=== PATIENT | male | born 1970 | race Caucasian/White ===

== ENCOUNTER 2021-07-04 15:55 | Observation (INO) | payer OTHER, MEDICARE ==
[2021-07-04 19:03] LABS: Basophils % (A) 1 %; Eosinophils # (A) 0.3 k/uL (0-0.7); Eosinophils % (A) 4 %; HCT 46.4 % (39.0-53.0); HGB 15.3 gm/dL (13.0-17.5); Lymphocytes # (A) 2.9 k/uL (1.0-4.8); Lymphocytes % (A) 37 %; MCHC 32.9 g/dL (31.0-37.0); MCV 91.4 fL (80.0-100.0); Mean Platelet Volume 7.7; Monocytes # (A) 0.4 k/uL (0-1.0); Monocytes % (A) 5 %; Neutrophils # (A) 4.1 k/uL (1.3-7.7); Neutrophils % (A) 51 %; Platelet Count 253 k/uL (150-450); RBC 5.08 m/uL (4.30-5.90); WBC 7.9 k/uL (3.8-10.6)
[2021-07-04 19:17] LABS: INR 0.9 (<1.2); Partial Thromboplastin Time 23.4 sec (22.0-30.0)
[2021-07-04 19:34] LABS: ALT 28 U/L (4-49); AST 34 U/L (17-59); African American GFR (CKD) >90 (>60 ml/min/1.73 sqM); Albumin 4.4 g/dL (3.5-5.0); Alkaline Phosphatase 65 U/L (38-126); Anion Gap 8 mmol/L; Blood Urea Nitrogen 16 mg/dL (9-20); Calcium 9.1 mg/dL (8.4-10.2); Carbon Dioxide 25 mmol/L (22-30); Chloride 105 mmol/L (98-107); Glucose 94 mg/dL (74-99); Lipase 114 U/L (23-300); Non-African American GFR(CKD) 84 (>60 ml/min/1.73 sqM); Potassium 4.6 mmol/L (3.5-5.1); Sodium 138 mmol/L (137-145); Total Bilirubin 0.3 mg/dL (0.2-1.3); Total Protein 7.4 g/dL (6.3-8.2)
--- NOTE | 2021-07-04 19:38 | ED ---
General Adult HPI - General Chief complaint: Chest Pain Stated complaint: Chest pain Time Seen by Provider: 07/04/21 18:33 Source: patient, RN notes reviewed, old records reviewed Mode of arrival: wheelchair Limitations: no limitations - History of Present Illness Initial comments: 51-year-old male history of hypertension and hyperlipidemia presents for evaluation of chest pain which began prior to arrival. This was associated with left arm pain and diaphoresis. No vomiting. No previous history of CAD. He states the pain is better but he has some very mild residual chest tightness currently. He was a former smoker. - Related Data Home Medications Medication Instructions Recorded Confirmed Simvastatin [Zocor] 20 mg PO HS 07/04/21 07/04/21 Allergies Allergy/AdvReac Type Severity Reaction Status Date / Time ampicillin Allergy Rash/Hives Verified 07/04/21 19:47 Penicillins Allergy Rash/Hives Verified 07/04/21 19:47 Review of Systems ROS Statement: Those systems with pertinent positive or pertinent negative responses have been documented in the HPI. ROS Other: All systems not noted in ROS Statement are negative. Past Medical History Past Medical History: Hyperlipidemia, Hypertension History of Any Multi-Drug Resistant Organisms: None Reported Past Surgical History: Hernia Repair, Orthopedic Surgery Additional Past Surgical History / Comment(s): LEFT HIP SURGERY; LEFT HAND SURG Past Psychological History: No Psychological Hx Reported Smoking Status: Never smoker Past Alcohol Use History: None Reported Past Drug Use History: None Reported General Exam Limitations: no limitations General appearance: alert, in no apparent distress Head exam: Present: atraumatic, normocephalic Eye exam: Present: normal appearance, PERRL ENT exam: Present: normal exam Neck exam: Present: normal inspection. Absent: tenderness, meningismus Respiratory exam: Present: normal lung sounds bilaterally. Absent: respiratory distress, wheezes Cardiovascular Exam: Present: regular rate, normal rhythm GI/Abdominal exam: Present: soft. Absent: distended, tenderness Extremities exam: Present: normal inspection, normal capillary refill Back exam: Present: normal inspection Neurological exam: Present: alert, oriented X3, CN II-XII intact. Absent: motor sensory deficit Psychiatric exam: Present: normal affect, normal mood Skin exam: Present: warm, dry, intact. Absent: cyanosis, diaphoretic Course Vital Signs 07/04/21 07/04/21 16:15 18:48 Temperature 98.3 F Pulse Rate 62 77 Respiratory 18 18 Rate Blood Pressure 135/87 143/107 O2 Sat by Pulse 99 Oximetry EKG Findings - EKG Comments: EKG Findings:: EKG: Normal sinus rhythm, 69 ventricular rate, TN interval 152, QRS duration 102, QTC [address] segment elevation Medical Decision Making - Medical Decision Making 51-year-old male presenting with chest pain. Patient had typical features. Initial EKG is sinus rhythm without ST segment elevation. His pain is nearly completely resolved with time my initial evaluation. He does have risk factors including hypertension and hyperlipidemia. His chest x-ray is clear. His CBC, CMP are unremarkable. The patient has negative initial troponin. Given his risk factors he will be kept in observation for serial cardiac enzymes, telem etry, cardiology consultation. - Lab Data Result diagrams: 07/04/21 18:50 07/04/21 18:50 Lab Results 07/04/21 07/04/21 07/04/21 Range/Units 18:50 18:50 18:50 WBC 7.9 (3.8-10.6) k/uL RBC 5.08 (4.30-5.90) m/uL Hgb 15.3 (13.0-17.5) gm/dL Hct 46.4 (39.0-53.0) % MCV 91.4 (80.0-100.0) fL MCH 30.0 (25.0-35.0) pg MCHC 32.9 (31.0-37.0) g/dL RDW 13.0 (11.5-15.5) % Plt Count 253 (150-450) k/uL MPV 7.7 Neutrophils % 51 % Lymphocytes % 37 % Monocytes % 5 % Eosinophils % 4 % Basophils % 1 % Neutrophils # 4.1 (1.3-7.7) k/uL Lymphocytes # 2.9 (1.0-4.8) k/uL Monocytes # 0.4 (0-1.0) k/uL Eosinophils # 0.3 (0-0.7) k/uL Basophils # 0.0 (0-0.2) k/uL PT 10.0 (9.0-12.0) sec INR 0.9 (<1.2) APTT 23.4 (22.0-30.0) sec Sodium 138 (137-145) mmol/L Potassium 4.6 (3.5-5.1) mmol/L Chloride 105 (98-107) mmol/L Carbon Dioxide 25 (22-30) mmol/L Anion Gap 8 mmol/L BUN 16 (9-20) mg/dL Creatinine 1.04 (0.66-1.25) mg/dL Est GFR (CKD-EPI)AfAm >90 (>60 ml/min/1.73 sqM) Est GFR (CKD-EPI)NonAf 84 (>60 ml/min/1.73 sqM) Glucose 94 (74-99) mg/dL Calcium 9.1 (8.4-10.2) mg/dL Magnesium 2.0 (1.6-2.3) mg/dL Total Bilirubin 0.3 (0.2-1.3) mg/dL AST 34 (17-59) U/L ALT 28 (4-49) U/L Alkaline Phosphatase 65 (38-126) U/L Troponin I (0.000-0.034) ng/mL Total Protein 7.4 (6.3-8.2) g/dL Albumin 4.4 (3.5-5.0) g/dL Lipase 114 (23-300) U/L 07/04/21 Range/Units 18:50 WBC (3.8-10.6) k/uL RBC (4.30-5.90) m/uL Hgb (13.0-17.5) gm/dL Hct (39.0-53.0) % MCV (80.0-100.0) fL MCH (25.0-35.0) pg MCHC (31.0-37.0) g/dL RDW (11.5-15.5) % Plt Count (150-450) k/uL MPV Neutrophils % % Lymphocytes % % Monocytes % % Eosinophils % % Basophils % % Neutrophils # (1.3-7.7) k/uL Lymphocytes # (1.0-4.8) k/uL Monocytes # (0-1.0) k/uL Eosinophils # (0-0.7) k/uL Basophils # (0-0.2) k/uL PT (9.0-12.0) sec INR (<1.2) APTT (22.0-30.0) sec Sodium (137-145) mmol/L Potassium (3.5-5.1) mmol/L Chloride (98-107) mmol/L Carbon Dioxide (22-30) mmol/L Anion Gap mmol/L BUN (9-20) mg/dL Creatinine (0.66-1.25) mg/dL Est GFR (CKD-EPI)AfAm (>60 ml/min/1.73 sqM) Est GFR (CKD-EPI)NonAf (>60 ml/min/1.73 sqM) Glucose (74-99) mg/dL Calcium (8.4-10.2) mg/dL Magnesium (1.6-2.3) mg/dL Total Bilirubin (0.2-1.3) mg/dL AST (17-59) U/L ALT (4-49) U/L Alkaline Phosphatase (38-126) U/L Troponin I <0.012 (0.000-0.034) ng/mL Total Protein (6.3-8.2) g/dL Albumin (3.5-5.0) g/dL Lipase (23-300) U/L Disposition Clinical Impression: Chest pain Disposition: ADMITTED IP TO THIS [facility] Condition: Stable Is patient prescribed a controlled substance at d/c from ED?: No Referrals: Nonstaff,Physician [Primary Care Provider] - 1-2 days Decision to Admit Reason: Admit from EC Decision Date: 07/04/21 Decision Time: 20:33
--- NOTE | 2021-07-04 19:44 | XR ---
EXAMINATION TYPE: XR chest 2V DATE OF EXAM: 07/04/2021 CLINICAL HISTORY: Chest Pain. TECHNIQUE: Frontal and lateral view of the chest. COMPARISON: 07/20/2014 FINDINGS: The cardiomediastinal silhouette is within normal limits for size. Pulmonary vasculature i s normal. There is no focal air space opacity. No pleural effusion. No pneumothorax seen. No acute d isplaced osseous fracture. IMPRESSION: No acute cardiopulmonary process.
[2021-07-04] MEDS ORDERED: ASPIRIN 325 MG TAB PO STA (20:02)
[2021-07-04] MEDS ORDERED: MORPHINE SULFATE 4 MG/ML SYRINGE IV PRN (20:31)
[2021-07-04] MEDS ORDERED: ACETAMINOPHEN TAB 325 MG TAB PO PRN (20:31)
[2021-07-04] MEDS ORDERED: NALOXONE 0.4 MG/ML 1 ML VIAL IV PRN (20:31)
[2021-07-04] MEDS ORDERED: NITROGLYCERIN SL TABS 0.4 MG TAB SUBLINGUAL PRN (20:32)
--- NOTE | 2021-07-05 09:09 | P.HPIM ---
History of Present Illness This is a pleasant 51 years old male with past medical history of hyperlipidemia presents with episodes of chest pain and dyspnea that lasted for about an hour associated with left-sided jaw/neck pain Patient states that he has chest pain on and off for several months, to [place] [facility] last January and told him to watch it. Yesterday he had similar pressure- like chest pain on the left side of the chest, nonradiating while he was sitting in his incliner , and when he start walking to do simple physical activity he got sweating so he decided to come to emergency room. Chest pain as 6-7/10 and currently improvement down to 1-2/10 in severity yet felt like sharp with some dyspnea but no coughing. No hemoptysis. No weakness or dizziness or palpitation. In urine or bowel habits. No fever He denies smoking, alcohol or illicit drugs Vital signs are stable Labs reviewed and they're unremarkable including CBC, BMP and liver enzymes. Troponin is negative less than 0.012. EKG showed normal sinus rhythm at 69 with QTC of 4 to to have no significant ST- T changes Chest x-ray: No acute cardiopulmonary process Patient received aspirin in the emergency room and cardiology team are consulted Review of Systems CONSTITUTIONAL: No fever, no malaise, no fatigue. HEENT: No recent visual problems or hearing problems. Denied any sore throat. CARDIOVASCULAR: No orthopnea, PND, no palpitations, no syncope. PULMONARY: No shortness of breath, no cough, no hemoptysis. GASTROINTESTINAL: No diarrhea, no nausea, no vomiting, no abdominal pain. Normoactive bowel sounds. NEUROLOGICAL: No headaches, no weakness, no numbness. HEMATOLOGICAL: Denies any bleeding or petechiae. GENITOURINARY: Denies any burning micturition, frequency, or urgency. MUSCULOSKELETAL/RHEUMATOLOGICAL: Denies any joint pain, swelling, or any muscle pain. ENDOCRINE: Denies any polyuria or polydipsia. Past Medical History Past Medical History: Hyperlipidemia, Hypertension History of Any Multi-Drug Resistant Organisms: None Reported Past Surgical History: Hernia Repair, Orthopedic Surgery Additional Past Surgical History / Comment(s): LEFT HIP SURGERY; LEFT HAND SURG Past Psychological History: No Psychological Hx Reported Smoking Status: Never smoker Past Alcohol Use History: None Reported Past Drug Use History: None Reported Medications and Allergies Home Medications Medication Instructions Recorded Confirmed Type Simvastatin [Zocor] 20 mg PO HS 07/04/21 07/04/21 History Allergies Allergy/AdvReac Type Severity Reaction Status Date / Time ampicillin Allergy Rash/Hives Verified 07/04/21 19:47 Penicillins Allergy Rash/Hives Verified 07/04/21 19:47 Physical Exam Vitals: Vital Signs Temp Pulse Resp BP Pulse Ox 07/05/21 06:00 54 L 18 127/83 97 07/05/21 00:00 68 18 102/61 97 07/04/21 21:00 68 18 128/81 98 07/04/21 18:48 77 18 143/107 07/04/21 16:15 98.3 F 62 18 135/87 99 Intake and Output 07/04/21 07/05/21 07/05/21 22:59 06:59 14:59 Other: Weight 102.965 kg GENERAL: The patient is alert and oriented x3, not in any acute distress. Well developed, well nourished. HEENT: Pupils are round and equally reacting to light. EOMI. No scleral icterus. No conjunctival pallor. Normocephalic, atraumatic. No pharyngeal erythema. No thyromegaly. -CARDIOVASCULAR: S1 and S2 present. No murmurs, rubs, or gallops. Mild left mid sternal level chest wall tenderness PULMONARY: Chest is clear to auscultation, no wheezing or crackles. ABDOMEN: Soft, nontender, nondistended, normoactive bowel sounds. No palpable organomegaly. MUSCULOSKELETAL: No joint swelling or deformity. EXTREMITIES: No cyanosis, clubbing, or pedal edema. NEUROLOGICAL: Gross neurological examination did not reveal any focal deficits. SKIN: No rashes. No petechiae Results CBC & Chem 7: 07/04/21 18:50 07/04/21 18:50 Assessment and Plan Assessment: Chest pain and dyspnea, rule out cardiac causes. The also musculoskeletal versus others history hyperlipidemia Plan: This is a pleasant 51 years old male who presents with chest pain Continue with aspirin Cardiology consult who could recommend stress test Labs and medication were reviewed.. Continue same treatment. Continue with symptomatic treatment. Resume home medication. Monitor lytes and vitals. DVT and GI prophylaxis. Further recommendations as per clinical course of the patient DVT prophylaxis: Subcutaneous heparin GI Prophylaxis: Pepcid Prognosis is guarded
[2021-07-05] MEDS ORDERED: FAMOTIDINE 20 MG/2 ML VIAL IV SCH (09:15)
--- NOTE | 2021-07-05 09:49 | P.CRDCN ---
History of Present Illness Consult date: 07/05/21 History of present illness: HISTORY OF PRESENT ILLNESS: This is a 51 year old male with a past medical history significant for hyperlipidemia, former nicotine dependence, and occasional alcohol use. 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 Patient does report he follows with a [place] physician in [place] and was last evaluated there in January. We have been asked to see the patient in consultation for pain. Patient examined at the bedside. Patient states yesterday he was sitting at home in his recliner when he began to have some chest discomfort. He reports it felt like some he was flicking his chest. He thought he needed some fresh air so he got up and went outside and did some minor yard work. He states the discomfort worsened at that time. He began to feel sweaty and lightheaded. He denied any nausea or vomiting. He states he became concerned at that time so he presented to the emergency room for further evaluation. He states that several episode lasted for approximately 4-5 hours. He does report receiving aspirin and states it relieved his pain. At the time of examination he denies having any pain or pressure. The patient does report having these episodes for the past 2-3 months. He reports that her random and do not always occur with exertion. The patient is a former smoker. He reports having 2-3 drinks a week. No drug or marijuana use. He does report a family history of coronary artery disease and states his dad from a heart attack at age of 61. EKG reveals sinus mechanism with T-wave inversions in lead III Chest xray negative for acute cardiopulmonary process Laboratory data: WBC 7.9. Hemoglobin 15.3. Platelet count 253. Sodium 138. Potassium 4.6. BUN 16. Creatinine 1.04. Magnesium 2.0. Troponin negative 3. Current home cardiac medications include simvastatin 20 mg REVIEW OF SYSTEMS: At the time of my exam: CONSTITUTIONAL: Denies fever or chills. HEENT: Denies blurred vision, vision changes, or eye pain. Denies hemoptysis CARDIOVASCULAR: Denies chest pain. Denies orthopnea. Denies PND. Denies palpitations RESPIRATORY: Denies shortness of breath. GASTROINTESTINAL: Denies abdominal pain. Denies nausea or vomiting. HEMATOLOGIC: Denies bleeding disorders. GENITOURINARY: Denies any blood in urine. SKIN: Denies pruitis. Denies rash. PHYSICAL EXAM: VITAL SIGNS: Reviewed. GENERAL: Well-developed in no acute distress. HEENT: Head is normocephalic. Pupils are equal, round. Sclerae anicteric. Mucous membranes of the mouth are moist. Neck supple. No JVD or thyromegaly LUNGS: Respirations even and unlabored. Lungs essentially clear to auscultation bilaterally. HEART: Regular rate and rhythm. S1 and S2 heard. ABDOMEN: Soft. Nondistended. Nontender. EXTREMITIES: Normal range of motion. No clubbing or cyanosis. Peripheral pulses intact. No lower extremity edema NEUROLOGIC: Awake and alert. Oriented x 3. ASSESSMENT: Chest pain, troponins negative 3 Hyperlipidemia Former nicotine dependence Occasional alcohol use PLAN: An acute coronary event has been ruled out Resume home cardiac medications Obtain 2D echo to assess cardiac structure and function Patient to undergo stress echocardiogram today to assess for reversible ischemia Further recommendations pending patient's course Nurse practitioner note has been reviewed by physician. Signing provider agrees with the documented findings, assessment, and plan of care. Past Medical History Past Medical History: Hyperlipidemia, Hypertension History of Any Multi-Drug Resistant Organisms: None Reported Past Surgical History: Hernia Repair, Orthopedic Surgery Additional Past Surgical History / Comment(s): LEFT HIP SURGERY; LEFT HAND SURG Past Psychological History: No Psychological Hx Reported Smoking Status: Never smoker Past Alcohol Use History: None Reported Past Drug Use History: None Reported Medications and Allergies Home Medications Medication Instructions Recorded Confirmed Type Simvastatin [Zocor] 20 mg PO HS 07/04/21 07/04/21 History Allergies Allergy/AdvReac Type Severity Reaction Status Date / Time ampicillin Allergy Rash/Hives Verified 07/04/21 19:47 Penicillins Allergy Rash/Hives Verified 07/04/21 19:47 Physical Exam Vitals: Vital Signs Temp Pulse Resp BP Pulse Ox 07/05/21 06:00 54 L 18 127/83 97 07/05/21 00:00 68 18 102/61 97 07/04/21 21:00 68 18 128/81 98 07/04/21 18:48 77 18 143/107 07/04/21 16:15 98.3 F 62 18 135/87 99 Intake and Output 07/04/21 07/05/21 07/05/21 22:59 06:59 14:59 Other: Weight 102.965 kg Results 07/04/21 18:50 07/04/21 18:50 Cardiac Enzymes 07/04/21 07/04/21 07/04/21 Range/Units 18:50 18:50 23:16 AST 34 (17-59) U/L Troponin I <0.012 <0.012 (0.000-0.034) ng/mL 07/05/21 Range/Units 01:11 AST (17-59) U/L Troponin I <0.012 (0.000-0.034) ng/mL Coagulation 07/04/21 Range/Units 18:50 PT 10.0 (9.0-12.0) sec APTT 23.4 (22.0-30.0) sec CBC 07/04/21 Range/Units 18:50 WBC 7.9 (3.8-10.6) k/uL RBC 5.08 (4.30-5.90) m/uL Hgb 15.3 (13.0-17.5) gm/dL Hct 46.4 (39.0-53.0) % Plt Count 253 (150-450) k/uL Comprehensive Metabolic Panel 07/04/21 Range/Units 18:50 Sodium 138 (137-145) mmol/L Potassium 4.6 (3.5-5.1) mmol/L Chloride 105 (98-107) mmol/L Carbon Dioxide 25 (22-30) mmol/L BUN 16 (9-20) mg/dL Creatinine 1.04 (0.66-1.25) mg/dL Glucose 94 (74-99) mg/dL Calcium 9.1 (8.4-10.2) mg/dL AST 34 (17-59) U/L ALT 28 (4-49) U/L Alkaline Phosphatase 65 (38-126) U/L Total Protein 7.4 (6.3-8.2) g/dL Albumin 4.4 (3.5-5.0) g/dL Current Medications Generic Name Dose Route Start Last Admin Trade Name Freq PRN Reason Stop Dose Admin Acetaminophen 650 mg 07/04/21 20:31 Acetaminophen Tab 325 Mg Tab PO Q6HR PRN Mild Pain or Fever > 100.5 Morphine Sulfate 4 mg 07/04/21 20:31 Morphine Sulfate 4 Mg/Ml Syringe IV Q4HR PRN Severe Pain Naloxone HCl 0.2 mg 07/04/21 20:31 Naloxone 0.4 Mg/Ml 1 Ml Vial IV Q2M PRN Opioid Reversal Nitroglycerin 0.4 mg 07/04/21 20:32 Nitroglycerin Sl Tabs 0.4 Mg Tab SUBLINGUAL Q5M PRN Chest Pain Intake and Output 07/04/21 07/05/21 07/05/21 22:59 06:59 14:59 Other: Weight 102.965 kg 07/04/21 18:50 07/04/21 18:50
[2021-07-05 09:59] VITALS: RESP 16
--- NOTE | 2021-07-05 10:59 | ECHOF ---
Referral Reason:Rule out heart disease MEASUREMENTS -------- HEIGHT: 157.5 cm WEIGHT: 103.0 kg BP: 127/83 RVIDd: 3.4 cm (< 3.3) IVSd: 1.2 cm (0.6 - 1.1) LVIDd: 5.1 cm (3.9 - 5.3) LVPWd: 1.4 cm (0.6 - 1.1) IVSs: 1.9 cm LVIDs: 3.2 cm LVPWs: 2.1 cm LAESV Index (A-L): 26.78 ml/m Ao Diam: 3.5 cm (2.0 - 3.7) AV Cusp: 2.5 cm (1.5 - 2.6) LA Diam: 4.5 cm (2.7 - 3.8) MV EXCURSION: 16.144 mm (> 18.000) MV EF SLOPE: 83 mm/s (70 - 150) EPSS: 1.9 cm MV E Andres: 0.61 m/s MV DecT: 245 ms MV A Andres: 0.81 m/s MV E/A Ratio: 0.75 RAP: 5.00 mmHg RVSP: 24.29 mmHg FINDINGS -------- Sinus rhythm. This was a technically difficult study with suboptimal apical views. The left ventricular size is normal. There is mild concentric left ventricular hypertrophy. Overa ll left ventricular systolic function is normal with, an EF between 55 - 60 %. The diastolic fillin g pattern is normal for the age of the patient 8.54. The right ventricle is mildly enlarged. Normal LA size by volume 22+/-6 ml/m2. The right atrium was not well visualized. 1.0mg of Lumason was utilized for enhancement of images Interatrial and interventricular septum intact. The aortic valve is trileaflet and appears structurally normal. There is no evidence of aortic regu rgitation. There is no evidence of aortic stenosis. There is trace to mild mitral regurgitation. Mild tricuspid regurgitation present. There is no evidence of pulmonary hypertension. The right v entricular systolic pressure, as measured by Doppler, is 24.29mmHg. There is no pulmonic regurgitation present. The aortic root size is normal. IVC Not well visulized. There is no pericardial effusion. CONCLUSIONS -------- 1. The left ventricular size is normal. 2. There is mild concentric left ventricular hypertrophy. 3. Overall left ventricular systolic function is normal with, an EF between 55 - 60 %. 4. The diastolic filling pattern is normal for the age of the patient 8.54 5. The right ventricle is mildly enlarged. 6. There is trace to mild mitral regurgitation. 7. Mild tricuspid regurgitation present. SENIOR CLIMATE ADVISOR: Kelsy Gutierrez RDCS
--- NOTE | 2021-07-05 11:37 | P.STRESS ---
- Stress Test Note Stress Test Results/Findings: Exam Performed: stress echo exercise Exam Date: 07/05/21 Reason for Exam: CP Height: 5 ft 11 in Weight: 102.97 kg Protocol: STRESS ECHO EXERCISE Stage: 3 Duration of Exercise: 9:00 Resting Heart Rate: 53 Resting Blood Pressure: 134/89 Maximum Achieved Heart Rate: 147 Maximum Achieved Blood Pressure: 168/110 85% PMHR: 145 100% PMHR: 170 METS: 10.7 Technologist Comment: Stress Test Results/Findings: Patient underwent exercise stress echo with a Zach protocol treadmill stress test. Patient exercised into Stage 3 for a total of 9 minutes and 12 seconds reaching a total of 10.7 METS. Patient's maximum heart rate was 147 which represented 86 % age-predicted maximum heart rate. Stress EKG portion: At baseline patient's EKG showed normal sinus rhythm, normal axis, no significant ST or T wave abnormalities. At peak exercise, EKG showed and no significant change from baseline. Stress echo portion: 2-D echocardiogram was performed in the parasternal long, personal short, apical 2 and apical four-chamber views at rest, peak exercise and in recovery. At baseline, echocardiogram showed left ventricular ejection fraction 55% without wall motion abnormalities. With peak exercise, echocardiogram shows improvement in left ventricular ejection fraction, increase contractility, decrease in left ventricular end systolic dimension without wall motion abnormalities consistent with a normal response to exercise. Conclusions: 1. Normal EKG and echo response to exercise without evidence of inducible ischemia. 2. Good exercise capacity. 3. Normal ejection fraction 55%
[2021-07-05 15:31] VITALS: BP 143/77; PULSE 70; TEMP 97.9
--- NOTE | 2021-07-05 15:44 | US ---
EXAMINATION TYPE: US venous doppler duplex LE LT DATE OF EXAM: 07/05/2021 3:11 PM COMPARISON: NONE CLINICAL HISTORY: pain. Left leg pain SIDE PERFORMED: Left TECHNIQUE: The lower extremity deep venous system is examined utilizing real time linear array sonog mel with graded compression, doppler sonography and color-flow sonography. VESSELS IMAGED: Common Femoral Vein Deep Femoral Vein Greater Saphenous Vein * Femoral Vein Popliteal Vein Small Saphenous Vein * Proximal Calf Veins (* superficial vessels) There is normal flow, compressibility, vascular waveforms. Left Leg: Negative for DVT IMPRESSION: No evident deep venous thrombosis within the left lower extremity from the level of the k nee centrally
[2021-07-05] MEDS ORDERED: HEPARIN SODIUM,PORCINE/PF 5,000 UNIT/0.5 ML SYRINGE SQ SCH (21:00)
[2021-07-05] MEDS ORDERED: ATORVASTATIN 10 MG TAB PO SCH (21:00)
== END 2021-07-05 17:35 | disposition home or self-care (01) ==
LOC: EC 15:55 → 1SOBS 20:31 → INTOOBSV 20:31 → 6NMEDSUR 21:45 → 1SOBS 07-05 08:45 → UNDODISIN 07-05 17:20
PROVIDERS: ADMIT Hospitalist; ATTEND Hospitalist
DX: R07.89 Other chest pain (principal); R06.00 Dyspnea, unspecified; E78.5 Hyperlipidemia, unspecified; I10 Essential (primary) hypertension; Z20.822 Contact with and (suspected) exposure to COVID-19; R42 Dizziness and giddiness; R61 Generalized hyperhidrosis; M54.2 Cervicalgia; M79.602 Pain in left arm; Z88.0 Allergy status to penicillin; Z88.1 Allergy status to other antibiotic agents; Z87.891 Personal history of nicotine dependence; Z87.19 Personal history of other diseases of the digestive system; Z82.49 Family history of ischemic heart disease and other diseases of the circulatory system
CPT/HCPCS: 99285; 96374; 36415; 93005; 93306; 93351; 80053; 83690; 83735; 84484 ×2; 85025; 85610; 85730; 87635; 71046; 93971; G0378 ×2; Q9950

== ENCOUNTER 2022-03-29 09:32 | Emergency (ER) | payer OTHER, MEDICARE ==
[2022-03-29 09:49] VITALS: BP 111/74; PULSE 61; RESP 16; TEMP 97.7
[2022-03-29] MEDS ORDERED: FLUORESCEIN STRIPS 1 MG STRIP RIGHT EYE ONE (10:10)
[2022-03-29] MEDS ORDERED: PROPARACAINE 0.5% OPHTH DROPS 15 ML BTL RIGHT EYE STA (10:10)
--- NOTE | 2022-03-29 10:27 | ED ---
Eye Problem HPI - General Chief complaint: Eye Problems Stated complaint: Foreign object stuck in R eye Time Seen by Provider: 03/29/22 10:04 Source: patient Mode of arrival: ambulatory Limitations: no limitations - History of Present Illness Initial comments: Patient is a 51-year-old male presenting with chief complaint of right eye pain. Patient states he was doing yard work yesterday when he felt something his glasses and hit him in the right eye. Patient woke up with pain, watering, redness, and itching. Patient admits to foreign body sensation. Some light sensitivity. No vision loss or discharge. Patient is not a contact lens wearer - Related Data Home Medications Medication Instructions Recorded Confirmed Simvastatin [Zocor] 20 mg PO HS 07/04/21 07/04/21 Previous Rx's Medication Instructions Recorded Famotidine [Pepcid] 20 mg PO BID #60 tablet 07/05/21 Allergies Allergy/AdvReac Type Severity Reaction Status Date / Time ampicillin Allergy Rash/Hives Verified 03/29/22 09:49 Penicillins Allergy Rash/Hives Verified 03/29/22 09:49 Review of Systems ROS Statement: Those systems with pertinent positive or pertinent negative responses have been documented in the HPI. ROS Other: All systems not noted in ROS Statement are negative. Past Medical History Past Medical History: Hyperlipidemia, Hypertension History of Any Multi-Drug Resistant Organisms: None Reported Past Surgical History: Hernia Repair, Orthopedic Surgery Additional Past Surgical History / Comment(s): LEFT HIP SURGERY; LEFT HAND SURG Past Psychological History: No Psychological Hx Reported Smoking Status: Former smoker Past Alcohol Use History: Occasional Past Drug Use History: None Reported - Past Family History Father History Unknown: Yes General Exam Limitations: no limitations General appearance: alert, in no apparent distress Head exam: Present: atraumatic, normocephalic, normal inspection Eye exam: Present: PERRL, EOMI. Absent: periorbital swelling, periorbital tenderness Expanded Sclera/Conjunctival: Injection: Right (Corneal abrasion seen him once lamp exam, no foreign body on Globe inspection and eyelid inversion) Neck exam: Present: normal inspection Neurological exam: Present: alert, oriented X3, CN II-XII intact Psychiatric exam: Present: normal affect, normal mood Skin exam: Present: warm, dry, intact, normal color. Absent: rash Course Vital Signs 03/29/22 09:45 Temperature 97.7 F Pulse Rate 61 Respiratory 16 Rate Blood Pressure 111/74 O2 Sat by Pulse 100 Oximetry Medical Decision Making - Medical Decision Making Patient is a 51-year-old male presenting with chief complaint of right eye discomfort. Patient was doing yard work yesterday, he felt something bounced off of his classes and into his eye. This morning he woke up and there was discomfort, watering, redness, and itching. Patient does not wear contact lenses. On examination with fluorescein staining and Wood's lamp, the corneal abrasion is seen. No foreign body is seen on inspection or eyelid inversion. Patient is prescribed ofloxacin eyedrops. Instructed to follow-up with PCP and ophthalmology. Report back to ER with any new or worsening symptoms. Discussed return parameters answered all questions. Patient conveyed verbal understanding and agreed to the plan. I discussed this case with my attending Dr. Paul. Disposition Clinical Impression: Corneal abrasion Disposition: HOME SELF-CARE Condition: Good Instructions (If sedation given, give patient instructions): Abrasion (ED) Additional Instructions: Follow-up with PCP and ophthalmology. Report back to ER with any new or worsening symptoms. Apply eye drops into affected eye 4 times a day for 5 days. Is patient prescribed a controlled substance at d/c from ED?: No Referrals: Nonstaff,Physician [Primary Care Provider] - 1-2 days Carolyn Yin MD [STAFF PHYSICIAN] - 1-2 days Time of Disposition: 10:49
[2022-03-29] MEDS ORDERED: DIPH,PERTUS(ACELL)TETVAC-LF 0.5 ML VIAL IM ONE (10:46)
[2022-03-29] MEDS ORDERED: OFLOXACIN 0.3% OPHTH DROPS 5 ML BOTTLE RIGHT EYE SCH (12:00)
== END 2022-03-29 11:11 | disposition home or self-care (01) ==
LOC: EC 09:32
DX: S05.01XA Injury of conjunctiva and corneal abrasion without foreign body, right eye, initial encounter (principal); Z23 Encounter for immunization; E78.5 Hyperlipidemia, unspecified; I10 Essential (primary) hypertension; Z87.891 Personal history of nicotine dependence; Z88.0 Allergy status to penicillin; Z79.899 Other long term (current) drug therapy; W22.8XXA Striking against or struck by other objects, initial encounter
CPT/HCPCS: 90471; 90715; 99283